=== PATIENT | male | born 1945 | race Caucasian/White ===

== ENCOUNTER 2016-11-17 19:46 | Inpatient (IN) | payer MEDICARE ==
--- NOTE | ~2016-11-17 | OP ---
Record Of Replaced by [facility] [address] [place]. [address] NAME: GENE DOTY : 46 STATUS : ADM IN PAT#: [id number] AGE: 70 ADM/REG DATE : 11/17/16 MR#: [id number] REPORT SERV DATE: 11/21/16 DICTATED BY: BUCK MENARD DATE: 11/20/16 REPORT STATUS : Draft TRANSCRIBED BY: MODL DATE: 11/20/16 DATE OF PROCEDURE: 11/20/2016 CARDIAC CATHETERIZATION REPORT INDICATION FOR THIS PROCEDURE: Anterior wall myocardial infarction with persistent congestive heart failure and possible VSD by echocardiogram. PROCEDURE IN DETAIL: The patient was prepped and draped in the usual sterile fashion. He was under moderate IV sedation prior to arrival. Adequate anesthesia was obtained over the left femoral vessels using lidocaine infiltration. Using the Seldinger technique, a 6- Kazakh sheath was placed in the left femoral artery. A 6 FL4 coronary catheter was advanced in the left coronary ostium. Left coronary artery injections were performed in the DANISH and HIGGINS views. The left coronary catheter was then exchanged for a 6-Kazakh pigtail catheter which was advanced into the left ventricular cavity. Pressures were measured across the aortic valve and a left ventricular angiogram was obtained in the HIGGINS projection. The pigtail catheter was removed over a guidewire and the sheath was left in place. There were no apparent complications. TOTAL CONTRAST USED: 45 mL. TOTAL RADIATION EXPOSURE: 298 mGy. ESTIMATED BLOOD LOSS: No significant blood loss occurred. RESULTS: 1. Pressures: The left ventricular end-diastolic pressure was 20 mmHg and no gradient was present across the aortic valve. 2. Left ventricular angiogram: Left ventricle showed anteroapical akinesis with a global ejection fraction of 30%. Moderate mitral regurgitation was noted. 3. Coronary arteriography: The left main coronary artery was normal. The left anterior descending coronary artery had widely patent stents in its midportion with BILL grade 3 distal flow. Left circumflex coronary artery was free of significant disease. IMPRESSION: 1. Continued patency of stents in LAD with BILL grade 3 distal flow. 2. Severe left ventricular dysfunction with evidence of an anteroapical infarct and moderate mitral regurgitation. PLAN: Continue medical therapy. ADDENDUM: Left ventricular injection showed no angiographic evidence of left to right shunt. Record Of Replaced by [facility] [address] [place]. [address] NAME: GENE DOTY : 46 STATUS : ADM IN PAT#: [id number] AGE: 70 ADM/REG DATE : 11/17/16 MR#: [id number] REPORT SERV DATE: 11/21/16 DICTATED BY: BUCK MENARD DATE: 11/20/16 REPORT STATUS : Draft TRANSCRIBED BY: MODL DATE: 11/20/16 SS/RAHL Buck Menard M.D., DebbieCTishC. / [id number] / [id number] CC: Buck Menard M.D., MonaCTish Guerra D.O.
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
--- NOTE | ~2016-11-17 | OP ---
Record Of Operation [facility] [address] [place]. [address] NAME: GENE DOTY : 46 STATUS : ADM IN PAT#: [id number] AGE: 70 ADM/REG DATE : 11/17/16 MR#: [id number] REPORT SERV DATE: 11/19/16 DICTATED BY: BUCK MENARD DATE: 11/17/16 REPORT STATUS : Draft TRANSCRIBED BY: JASON DATE: 11/17/16 DATE OF PROCEDURE: 11/17/2016 CARDIAC CATHETERIZATION REPORT INDICATION FOR THIS PROCEDURE: Anterior wall myocardial infarction, complicated by cardiac arrest. PROCEDURE: The patient was brought emergently to the cardiac catheterization laboratory by red lead burner. The patient has already been intubated and was on dopamine and amiodarone drip at the time of arrival. The patient was prepped and draped in usual sterile fashion. Moderate IV sedation was administered. Adequate anesthesia was obtained over the right femoral vessels using lidocaine infiltration. Using the Seldinger technique, a 6-Chadian sheath was placed in the right femoral artery. A 6 FL5 coronary catheter was advanced in the left coronary ostium. Left coronary artery injections were performed in multiple views. Left coronary catheter was then exchanged for 6 FR4 coronary catheter which was advanced to the right coronary ostium. Right coronary injections were then performed in the FRANCES and HIGGINS views. Following PCI of the LAD, a 6-Chadian pigtail catheter was advanced in the left ventricular cavity. Pressures were measured across the aortic valve. Left ventricular angiogram was obtained in the HIGGINS projection. The pigtail catheter was removed and the sheath was left in place. RESULTS: 1. Pressures: Left ventricular end-diastolic pressure was 28 mmHg and no gradient was present across the aortic valve. 2. Left ventricular angiogram: Left ventricle showed severe anteroapical hypokinesis with global ejection fraction of around 35%. 3. Coronary arteriograms: The left main coronary artery was normal. Left anterior descending coronary artery was occluded proximal to the stent in the proximal vessel. The left circumflex coronary artery was normal. The right coronary was dominant vessel was also normal. IMPRESSION: 1. Acute occlusion of previously stented proximal LAD. 2. Severe left ventricular dysfunction with evidence of anterior apical infarct. PLAN: Recanalization of LAD. TUAN/JASON Buck Menard M.D., F.A.C.C. / [id number] Record Of [place] [address] [place]. [address] NAME: GENE DOTY : 46 STATUS : ADM IN PAT#: [id number] AGE: 70 ADM/REG DATE : 11/17/16 MR#: [id number] REPORT SERV DATE: 11/19/16 DICTATED BY: BUCK MENARD DATE: 11/17/16 REPORT STATUS : Draft TRANSCRIBED BY: JASON DATE: 11/17/16 CC: Buck Menard M.D., F.A.C.CTish Guerra D.O.
--- NOTE | ~2016-11-17 | OP ---
Record Of Operation [facility] [address] [place]. [address] NAME: GENE DOTY : 47 STATUS : ADM IN PAT#: [id number] AGE: 70 ADM/REG DATE : 11/17/16 MR#: [id number] REPORT SERV DATE: 11/17/16 DICTATED BY: BUCK MENARD DATE: 11/17/16 REPORT STATUS : Draft TRANSCRIBED BY: MODL DATE: 11/17/16 DATE OF PROCEDURE: 11/17/2016 PTCA AND INTRA-AORTIC BALLOON INSERTION REPORT INDICATION FOR THIS PROCEDURE: Anterior wall myocardial infarction, complicated by cardiopulmonary arrest and cardiogenic shock. PROCEDURE IN DETAIL: The patient was already prepped and draped. A 6-Sammarinese sheath was THEN placed in the right femoral artery from preceding cardiac catheterization. A 6 JL5 coronary guiding catheter was advanced in the left coronary ostium. Left coronary artery injections confirmed the presence of 100% occlusion in the proximal LAD. A 0.014 Luge guidewire was passed into the distal LAD through the site of occlusion. The vessel was then dilated with a 2.5/15 Emerge Balloon at up to 15 atmospheres pressure for 15 seconds in duration. Thrombectomy was then performed using a Pronto thrombectomy catheter. However, the thrombectomy catheter could not be passed beyond the mid vessel, and it was decided to proceed with thrombectomy using an AngioJet. Thrombectomy was performed using an AngioJet catheter. Intracoronary Cardene was administered. After re-establishing flow in the mid-to distal LAD, a segmental lesion of 60% to 70% severity was noted. A 2.5/28 Synergy stent was then deployed in the mid distal LAD at up to 15 atmospheres pressure for 15 seconds in duration. Following removal of balloon and guidewire, final left coronary artery injection showed 0% residual stenosis at the site of occlusion in the proximal vessel and the site of stent implantation in the mid to distal vessel. The distal LAD was noted to be a diffusely diseased small caliber vessel. Following PCI, the patient was still requiring dopamine for pressure support. It was decided to place an intra-aortic balloon pump. The 6-Sammarinese sheath was exchanged over a guidewire for an 8-Sammarinese sheath. An intra-aortic balloon pump was advanced to the descending aorta. An intra-aortic counterpulsation was begun at 1 to 2. The balloon pump was sutured into place, and the patient left the cardiac catheterization laboratory with stable vital signs. TOTAL CONTRAST USED: 205 mL. TOTAL RADIATION EXPOSURE: 1720 mGy. ESTIMATED BLOOD LOSS: No significant blood loss occurred. IMPRESSION: 1. Recanalization of occluded proximal LAD using balloon angioplasty and thrombectomy. 2. Stent implantation in the mid LAD. 3. Intracoronary Cardene administration. 4. Placement of intra-aortic balloon pump. TUAN/JASON Record Of [address] [address] NAME: GENE DOTY : 46 STATUS : ADM IN [facility]#: [id number] AGE: 70 ADM/REG DATE : 11/17/16 MR#: [id number] REPORT SERV DATE: 11/17/16 DICTATED BY: BUCK MENARD DATE: 11/17/16 REPORT STATUS : Draft TRANSCRIBED BY: JASON DATE: 11/17/16 Buck Menard M.D., F.A.C.C. / [id number] CC: Buck Menard M.D., F.A.C.CTish Guerra MD
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
[~2016-11-17 19:46] MED LIST: ALTA2.5 PO; ASAB PO; BRILINTA90 MG PO; LIPITOR20 PO; LOP25 PO; PRILOSEC40 MG PO
[2016-11-17] MEDS ORDERED: ASAB PO (20:28)
[2016-11-17] MEDS ORDERED: LIPITOR20 PO (20:28)
[2016-11-17] MEDS ORDERED: DIOV160 PO (20:28)
[2016-11-17] MEDS ORDERED: LOP25 PO (20:29)
[2016-11-17] MEDS ORDERED: PRILOSEC40 MG PO (20:29)
[2016-11-17] MEDS ORDERED: 8 HOUR650 MG PO (20:29)
[2016-11-17] MEDS ORDERED: REFRES1 OPH (20:30)
[2016-11-17] MEDS ORDERED: CLARIT10 PO (20:30)
[2016-11-17 22:35] LABS: BE (BASE EXCESS) -7.7 MEQ/L (0 +/- 2.5); CARBOXYHEMOGLOBIN 0.3 % (0-3); HCO3 (ACTUAL BICARBONATE) 17.7 MEQ/L (23-27); HEMOBLOGIN CONTENT 14.3 G/DL (14-18); INSTRUMENT SERIAL # 11843; METHEMOGLOBIN 0.5 % (0-3); O2 CONTENT 19.9 VOL% (18-24); OPERATOR ID 32193; PCO2 (CO2 TENSION) 36 MMHG (35-45); PO2 (O2 TENSION) 160 MMHG (79-93); SAMPLE Arterial; TIDAL VOLUME 650 ML; pH 7.31 (7.37-7.43)
[2016-11-18 00:20] LABS: CKMB INDEX (NOT ORD) 7.1
[2016-11-18 00:34] LABS: CARBOXYHEMOGLOBIN 0.1 % (0-3); HCO3 (ACTUAL BICARBONATE) 17.2 MEQ/L (23-27); HEMOBLOGIN CONTENT 14.2 G/DL (14-18); INSTRUMENT SERIAL # 11843; METHEMOGLOBIN 0.5 % (0-3); O2 CONTENT 19.2 VOL% (18-24); OPERATOR ID 32193; PCO2 (CO2 TENSION) 31 MMHG (35-45); PO2 (O2 TENSION) 90 MMHG (79-93); SAMPLE Arterial; TIDAL VOLUME 650 ML; pH 7.36 (7.37-7.43)
[2016-11-18 03:27] LABS: BE (BASE EXCESS) -6.6 MEQ/L (0 +/- 2.5); CARBOXYHEMOGLOBIN 0.2 % (0-3); HCO3 (ACTUAL BICARBONATE) 17.9 MEQ/L (23-27); INSTRUMENT SERIAL # 11843; METHEMOGLOBIN 0.4 % (0-3); MODE CMV; O2 CONTENT 19.1 VOL% (18-24); OPERATOR ID 16503; PCO2 (CO2 TENSION) 33 MMHG (35-45); PO2 (O2 TENSION) 99 MMHG (79-93); SAMPLE Arterial; TIDAL VOLUME 650 ML; pH 7.35 (7.37-7.43)
[2016-11-18 03:33] LABS: BASOPHILS 0.1 %; BASOPHILS ABSOLUTE 0.01 10/3/uL (0.0-0.16); EOSINOPHILS 0.1 %; EOSINOPHILS ABSOLUTE 0.01 10/3/uL (0.0-0.53); HEMATOCRIT 38.8 % (40.0-51.0); HEMOGLOBIN 13.2 g/dL (13.6-17.8); IMMATURE GRANULOCYTES 0.3 %; IMMATURE GRANULOCYTES ABSOLUTE 0.05 10/3/uL (0.0-0.11); LYMPHOCYTES 12.2 %; LYMPHOCYTES ABSOLUTE 1.82 10/3/uL (0.67-4.30); MEAN CORPUSCULAR HEMOGLOB 28.8 pg (26.0-34.0); MEAN CORPUSCULAR VOLUME 84.5 fL (80-100); MEAN PLATELET VOLUME 9.4 fL (9.2-13.0); MONOCYTES 8.8 %; MONOCYTES ABSOLUTE 1.31 10/3/uL (0.21-1.20); NEUTROPHILS 78.5 %; NEUTROPHILS ABSOLUTE 11.76 10/3/uL (2.02-8.40); PLATELET COUNT 274 10/3/uL (150-400); RBC DISTRIBUTION WIDTH 13.7 % (12.0-16.0); RED CELL COUNT 4.59 10/6/uL (4.7-6.1)
[2016-11-18 03:34] LABS: MANUAL DIFF NO %
[2016-11-18 03:48] LABS: BUN (BLOOD UREA NITROGEN) 21 MG/DL (6-23); CALCIUM, SERUM 8.3 MG/DL (8.5-10.4); CHLORIDE, SERUM 108 MMOL/L (96-112); CHOL/HDL RATIO(NOT ORDER) 3.3 (0-5); CHOLESTEROL 117 MG/DL (< 200); CO2 (CARBON DIOXIDE) 20 MMOL/L (24-34); CREATININE 1.29 MG/DL (0.70-1.30); GFR AFRICAN AMERICAN 65 ML/MIN (>=60); GFR NON AFRICAN AMERICAN 56 ML/MIN (>=60); GLUCOSE, SERUM 208 MG/DL (60-99); HDL CHOLESTEROL 35 MG/DL (> 39); LDL CHOLESTEROL 41 MG/DL (< 130); NON-HDL CHOLESTEROL 82 MG/DL (< 160); PHOSPHORUS, SERUM 2.3 MG/DL (2.5-4.5); POTASSIUM, SERUM 3.6 MMOL/L (3.5-5.3); SODIUM, SERUM 141 MMOL/L (135-148); TRIGLYCERIDE 208 MG/DL (< 150)
[2016-11-18 11:03] LABS: BE (BASE EXCESS) -4.5 MEQ/L (0 +/- 2.5); CARBOXYHEMOGLOBIN 0.3 % (0-3); HCO3 (ACTUAL BICARBONATE) 19.2 MEQ/L (23-27); HEMOBLOGIN CONTENT 13.7 G/DL (14-18); INSTRUMENT SERIAL # 11843; METHEMOGLOBIN 0.4 % (0-3); MODE CMV; O2 CONTENT 18.2 VOL% (18-24); PCO2 (CO2 TENSION) 32 MMHG (35-45); PO2 (O2 TENSION) 76 MMHG (79-93); SAMPLE Arterial; TIDAL VOLUME 650 ML
[2016-11-18 12:05] LABS: INTERNATIONAL NORMAL RATI 1.2 UNITS (-); PARTIAL THROMBO TIME 34.4 SEC (22.5-37.2); PROTIME (NOT ORD) 14.6 SEC (12.0-14.5)
[2016-11-18 12:19] LABS: BUN (BLOOD UREA NITROGEN) 18 MG/DL (6-23); CALCIUM, SERUM 8.3 MG/DL (8.5-10.4); CHLORIDE, SERUM 106 MMOL/L (96-112); CK-MB 287.6 NG/ML; CO2 (CARBON DIOXIDE) 20 MMOL/L (24-34); CPK 4980 U/L (0-200); CREATININE 1.17 MG/DL (0.70-1.30); GFR AFRICAN AMERICAN 73 ML/MIN (>=60); GFR NON AFRICAN AMERICAN 63 ML/MIN (>=60); GLUCOSE, SERUM 183 MG/DL (60-99); SODIUM, SERUM 138 MMOL/L (135-148)
[2016-11-18 12:24] LABS: CKMB INDEX (NOT ORD) 5.8
[2016-11-18 16:57] LABS: BUN (BLOOD UREA NITROGEN) 17 MG/DL (6-23); CALCIUM, SERUM 8.4 MG/DL (8.5-10.4); CHLORIDE, SERUM 109 MMOL/L (96-112); CO2 (CARBON DIOXIDE) 21 MMOL/L (24-34); GFR AFRICAN AMERICAN 71 ML/MIN (>=60); GFR NON AFRICAN AMERICAN 61 ML/MIN (>=60); GLUCOSE, SERUM 181 MG/DL (60-99); POTASSIUM, SERUM 3.8 MMOL/L (3.5-5.3); SODIUM, SERUM 141 MMOL/L (135-148)
[2016-11-18 18:13] LABS: CK-MB 157.2 NG/ML
[2016-11-18 18:15] LABS: CKMB INDEX (NOT ORD) 4.2
[2016-11-19 01:27] LABS: BASOPHILS 0.1 %; BASOPHILS ABSOLUTE 0.01 10/3/uL (0.0-0.16); EOSINOPHILS 0.1 %; EOSINOPHILS ABSOLUTE 0.01 10/3/uL (0.0-0.53); HEMOGLOBIN 12.4 g/dL (13.6-17.8); IMMATURE GRANULOCYTES 0.3 %; IMMATURE GRANULOCYTES ABSOLUTE 0.03 10/3/uL (0.0-0.11); LYMPHOCYTES 14.9 %; LYMPHOCYTES ABSOLUTE 1.76 10/3/uL (0.67-4.30); MEAN CORPUS HGB CONC 34.4 g/dL (32.0-36.0); MEAN CORPUSCULAR HEMOGLOB 28.8 pg (26.0-34.0); MEAN CORPUSCULAR VOLUME 83.7 fL (80-100); MONOCYTES 7.7 %; MONOCYTES ABSOLUTE 0.91 10/3/uL (0.21-1.20); NEUTROPHILS 76.9 %; NEUTROPHILS ABSOLUTE 9.07 10/3/uL (2.02-8.40); PLATELET COUNT 237 10/3/uL (150-400); RBC DISTRIBUTION WIDTH 13.9 % (12.0-16.0); WHITE BLOOD CELLS 11.8 10/3/uL (4.5-10.5)
[2016-11-19 01:28] LABS: MANUAL DIFF NO %
[2016-11-19 01:54] LABS: ALBUMIN 3.4 G/DL (3.5-5.0); ALKALINE PHOSPHATASE 80 U/L (45-117); BUN (BLOOD UREA NITROGEN) 16 MG/DL (6-23); CHLORIDE, SERUM 107 MMOL/L (96-112); CO2 (CARBON DIOXIDE) 22 MMOL/L (24-34); CPK 2619 U/L (0-200); DIRECT BILIRUBIN 0.2 MG/DL (0.0-0.4); GFR AFRICAN AMERICAN 79 ML/MIN (>=60); GFR NON AFRICAN AMERICAN 68 ML/MIN (>=60); GLUCOSE, SERUM 163 MG/DL (60-99); INDIRECT BILIRUBIN(NOT ORDER) 0.3 MG/DL (0.1-0.9); POTASSIUM, SERUM 3.6 MMOL/L (3.5-5.3); SGOT(AST) 300 U/L (5-40); SGPT(ALT) 86 U/L (5-65); SODIUM, SERUM 140 MMOL/L (135-148); TOTAL BILIRUBIN 0.5 MG/DL (0-1.2); TOTAL PROTEIN 6.8 G/DL (6.0-8.5)
[2016-11-19 01:56] LABS: PHOSPHORUS, SERUM 3.1 MG/DL (2.5-4.5)
[2016-11-19 04:00] LABS: BE (BASE EXCESS) -2.9 MEQ/L (0 +/- 2.5); HCO3 (ACTUAL BICARBONATE) 19.8 MEQ/L (23-27); INSTRUMENT SERIAL # 11843; PCO2 (CO2 TENSION) 29 MMHG (35-45); PO2 (O2 TENSION) 65 MMHG (79-93); pH 7.45 (7.37-7.43)
[2016-11-19 04:01] LABS: CARBOXYHEMOGLOBIN 0.3 % (0-3); METHEMOGLOBIN 0.3 % (0-3); MODE CMV; O2 CONTENT 16.9 VOL% (18-24); OPERATOR ID 16469; SAMPLE Arterial; TIDAL VOLUME 650 ML
[2016-11-19 10:37] LABS: POTASSIUM, SERUM 3.6 MMOL/L (3.5-5.3)
[2016-11-19 12:15] LABS: BE (BASE EXCESS) -3.7 MEQ/L (0 +/- 2.5); CARBOXYHEMOGLOBIN 0.3 % (0-3); HCO3 (ACTUAL BICARBONATE) 18.6 MEQ/L (23-27); HEMOBLOGIN CONTENT 12.8 G/DL (14-18); INSTRUMENT SERIAL # 11843; METHEMOGLOBIN 0.4 % (0-3); MODE CMV; PCO2 (CO2 TENSION) 27 MMHG (35-45); PO2 (O2 TENSION) 75 MMHG (79-93); SAMPLE Arterial; TIDAL VOLUME 550 ML; pH 7.46 (7.37-7.43)
[2016-11-19 14:00] LABS: CK-MB 36.9 NG/ML; CKMB INDEX (NOT ORD) 2.2
[2016-11-19 14:16] LABS: TROPONIN I 50.3 NG/ML (<0.05)
[2016-11-19 21:27] LABS: POTASSIUM, SERUM 3.6 MMOL/L (3.5-5.3)
[2016-11-20 03:47] LABS: BASOPHILS 0.1 %; BASOPHILS ABSOLUTE 0.01 10/3/uL (0.0-0.16); EOSINOPHILS 0.4 %; EOSINOPHILS ABSOLUTE 0.04 10/3/uL (0.0-0.53); HEMATOCRIT 33.4 % (40.0-51.0); HEMOGLOBIN 11.5 g/dL (13.6-17.8); IMMATURE GRANULOCYTES 0.4 %; IMMATURE GRANULOCYTES ABSOLUTE 0.04 10/3/uL (0.0-0.11); LYMPHOCYTES 15.2 %; LYMPHOCYTES ABSOLUTE 1.68 10/3/uL (0.67-4.30); MANUAL DIFF NO %; MEAN CORPUS HGB CONC 34.4 g/dL (32.0-36.0); MEAN CORPUSCULAR HEMOGLOB 29.3 pg (26.0-34.0); MEAN PLATELET VOLUME 9.4 fL (9.2-13.0); MONOCYTES ABSOLUTE 0.88 10/3/uL (0.21-1.20); NEUTROPHILS 75.9 %; NEUTROPHILS ABSOLUTE 8.37 10/3/uL (2.02-8.40); PLATELET COUNT 214 10/3/uL (150-400); RBC DISTRIBUTION WIDTH 14.4 % (12.0-16.0); RED CELL COUNT 3.93 10/6/uL (4.7-6.1)
[2016-11-20 04:01] LABS: A/G RATIO 0.9 (0.7-1.9); ALKALINE PHOSPHATASE 78 U/L (45-117); BUN (BLOOD UREA NITROGEN) 17 MG/DL (6-23); CALCIUM, SERUM 7.9 MG/DL (8.5-10.4); CHLORIDE, SERUM 104 MMOL/L (96-112); CO2 (CARBON DIOXIDE) 19 MMOL/L (24-34); CREATININE 1.13 MG/DL (0.70-1.30); GFR AFRICAN AMERICAN 76 ML/MIN (>=60); GFR NON AFRICAN AMERICAN 66 ML/MIN (>=60); GLOBULIN 3.4 G/DL (2.5-4.1); GLUCOSE, SERUM 165 MG/DL (60-99); SGOT(AST) 129 U/L (5-40); SGPT(ALT) 60 U/L (5-65); SODIUM, SERUM 135 MMOL/L (135-148); TOTAL PROTEIN 6.4 G/DL (6.0-8.5)
[2016-11-20 04:42] LABS: TOTAL BILIRUBIN 1.2 MG/DL (0-1.2)
[2016-11-20 09:45] LABS: ASCORBIC ACID (UR NOT ORDER) NEG (NEG); BILIRUBIN, URINE NEGATIVE (NEG); KETONE, URINE NEGATIVE (NEG); LEUKOCYTE ESTERASE(NOT OR NEG (NEG); WBC (NOT ORDERED) (RFLEX) 1 (0-5)
[2016-11-20 15:01] LABS: BUN (BLOOD UREA NITROGEN) 17 MG/DL (6-23); CALCIUM, SERUM 7.8 MG/DL (8.5-10.4); CHLORIDE, SERUM 103 MMOL/L (96-112); CO2 (CARBON DIOXIDE) 19 MMOL/L (24-34); GFR AFRICAN AMERICAN 71 ML/MIN (>=60); GFR NON AFRICAN AMERICAN 61 ML/MIN (>=60); GLUCOSE, SERUM 159 MG/DL (60-99); PHOSPHORUS, SERUM 3.4 MG/DL (2.5-4.5); POTASSIUM, SERUM 4.1 MMOL/L (3.5-5.3); SODIUM, SERUM 134 MMOL/L (135-148)
[2016-11-21 04:02] LABS: BASOPHILS 0.1 %; BASOPHILS ABSOLUTE 0.01 10/3/uL (0.0-0.16); EOSINOPHILS 1.4 %; EOSINOPHILS ABSOLUTE 0.13 10/3/uL (0.0-0.53); HEMATOCRIT 35.6 % (40.0-51.0); IMMATURE GRANULOCYTES 0.3 %; IMMATURE GRANULOCYTES ABSOLUTE 0.03 10/3/uL (0.0-0.11); LYMPHOCYTES 15.4 %; LYMPHOCYTES ABSOLUTE 1.43 10/3/uL (0.67-4.30); MEAN CORPUS HGB CONC 33.7 g/dL (32.0-36.0); MEAN CORPUSCULAR HEMOGLOB 29.1 pg (26.0-34.0); MEAN CORPUSCULAR VOLUME 86.2 fL (80-100); MEAN PLATELET VOLUME 9.9 fL (9.2-13.0); MONOCYTES 7.2 %; MONOCYTES ABSOLUTE 0.67 10/3/uL (0.21-1.20); NEUTROPHILS 75.6 %; NEUTROPHILS ABSOLUTE 7.01 10/3/uL (2.02-8.40); PLATELET COUNT 202 10/3/uL (150-400); RBC DISTRIBUTION WIDTH 14.1 % (12.0-16.0); RED CELL COUNT 4.13 10/6/uL (4.7-6.1); WHITE BLOOD CELLS 9.3 10/3/uL (4.5-10.5)
[2016-11-21 04:11] LABS: MANUAL DIFF NO %
[2016-11-21 04:15] LABS: A/G RATIO 0.8 (0.7-1.9); ALBUMIN 3.2 G/DL (3.5-5.0); ALKALINE PHOSPHATASE 83 U/L (45-117); BUN (BLOOD UREA NITROGEN) 19 MG/DL (6-23); CHLORIDE, SERUM 102 MMOL/L (96-112); CHOL/HDL RATIO(NOT ORDER) 3.5 (0-5); CHOLESTEROL 131 MG/DL (< 200); CO2 (CARBON DIOXIDE) 22 MMOL/L (24-34); CREATININE 1.17 MG/DL (0.70-1.30); GFR AFRICAN AMERICAN 73 ML/MIN (>=60); GFR NON AFRICAN AMERICAN 63 ML/MIN (>=60); GLOBULIN 3.8 G/DL (2.5-4.1); GLUCOSE, SERUM 148 MG/DL (60-99); HDL CHOLESTEROL 37 MG/DL (> 39); LDL CHOLESTEROL 56 MG/DL (< 130); NON-HDL CHOLESTEROL 94 MG/DL (< 160); PHOSPHORUS, SERUM 2.9 MG/DL (2.5-4.5); POTASSIUM, SERUM 3.9 MMOL/L (3.5-5.3); SGOT(AST) 151 U/L (5-40); SGPT(ALT) 60 U/L (5-65); SODIUM, SERUM 137 MMOL/L (135-148); TOTAL BILIRUBIN 1.6 MG/DL (0-1.2); TRIGLYCERIDE 193 MG/DL (< 150)
[2016-11-21 18:20] LABS: POTASSIUM, SERUM 3.6 MMOL/L (3.5-5.3)
[2016-11-22 03:51] LABS: BASOPHILS 0 %; EOSINOPHILS 0 %; HEMATOCRIT 32.3 % (40.0-51.0); HEMOGLOBIN 10.9 g/dL (13.6-17.8); IMMATURE GRANULOCYTES 0.2 %; IMMATURE GRANULOCYTES ABSOLUTE 0.02 10/3/uL (0.0-0.11); LYMPHOCYTES ABSOLUTE 0.64 10/3/uL (0.67-4.30); MEAN CORPUS HGB CONC 33.7 g/dL (32.0-36.0); MEAN CORPUSCULAR HEMOGLOB 28.2 pg (26.0-34.0); MEAN PLATELET VOLUME 9.5 fL (9.2-13.0); MONOCYTES 2.4 %; MONOCYTES ABSOLUTE 0.22 10/3/uL (0.21-1.20); NEUTROPHILS 90.4 %; NEUTROPHILS ABSOLUTE 8.21 10/3/uL (2.02-8.40); PLATELET COUNT 242 10/3/uL (150-400); RBC DISTRIBUTION WIDTH 13.9 % (12.0-16.0); RED CELL COUNT 3.87 10/6/uL (4.7-6.1); WHITE BLOOD CELLS 9.1 10/3/uL (4.5-10.5)
[2016-11-22 03:54] LABS: MANUAL DIFF NO %; MEAN CORPUSCULAR VOLUME 83.5 fL (80-100)
[2016-11-22 04:05] LABS: ALBUMIN 2.9 G/DL (3.5-5.0); BUN (BLOOD UREA NITROGEN) 20 MG/DL (6-23); CALCIUM, SERUM 8.6 MG/DL (8.5-10.4); CHLORIDE, SERUM 104 MMOL/L (96-112); CO2 (CARBON DIOXIDE) 20 MMOL/L (24-34); CREATININE 1.24 MG/DL (0.70-1.30); GFR AFRICAN AMERICAN 68 ML/MIN (>=60); GFR NON AFRICAN AMERICAN 59 ML/MIN (>=60); PHOSPHORUS, SERUM 2.4 MG/DL (2.5-4.5); POTASSIUM, SERUM 3.8 MMOL/L (3.5-5.3); SODIUM, SERUM 137 MMOL/L (135-148)
[2016-11-22 04:06] LABS: GLUCOSE, SERUM 202 MG/DL (60-99)
[2016-11-22 17:48] LABS: BUN (BLOOD UREA NITROGEN) 23 MG/DL (6-23); CALCIUM, SERUM 8.5 MG/DL (8.5-10.4); CHLORIDE, SERUM 106 MMOL/L (96-112); CO2 (CARBON DIOXIDE) 18 MMOL/L (24-34); CREATININE 1.12 MG/DL (0.70-1.30); GFR AFRICAN AMERICAN 77 ML/MIN (>=60); GFR NON AFRICAN AMERICAN 67 ML/MIN (>=60); GLUCOSE, SERUM 217 MG/DL (60-99); POTASSIUM, SERUM 3.6 MMOL/L (3.5-5.3); SODIUM, SERUM 136 MMOL/L (135-148)
[2016-11-23 03:59] LABS: BASOPHILS 0.1 %; BASOPHILS ABSOLUTE 0.01 10/3/uL (0.0-0.16); EOSINOPHILS 0 %; HEMATOCRIT 32.2 % (40.0-51.0); HEMOGLOBIN 10.9 g/dL (13.6-17.8); IMMATURE GRANULOCYTES 0.5 %; IMMATURE GRANULOCYTES ABSOLUTE 0.07 10/3/uL (0.0-0.11); LYMPHOCYTES 7.5 %; LYMPHOCYTES ABSOLUTE 1.14 10/3/uL (0.67-4.30); MEAN CORPUS HGB CONC 33.9 g/dL (32.0-36.0); MEAN CORPUSCULAR HEMOGLOB 28.5 pg (26.0-34.0); MEAN CORPUSCULAR VOLUME 84.3 fL (80-100); MEAN PLATELET VOLUME 9.5 fL (9.2-13.0); MONOCYTES ABSOLUTE 0.91 10/3/uL (0.21-1.20); NEUTROPHILS 85.9 %; NEUTROPHILS ABSOLUTE 12.97 10/3/uL (2.02-8.40); PLATELET COUNT 255 10/3/uL (150-400); RBC DISTRIBUTION WIDTH 13.9 % (12.0-16.0); RED CELL COUNT 3.82 10/6/uL (4.7-6.1)
[2016-11-23 04:11] LABS: MANUAL DIFF NO %; WHITE BLOOD CELLS 15.1 10/3/uL (4.5-10.5)
[2016-11-23 04:15] LABS: CALCIUM, SERUM 8.6 MG/DL (8.5-10.4); CHLORIDE, SERUM 105 MMOL/L (96-112); CO2 (CARBON DIOXIDE) 20 MMOL/L (24-34); CREATININE 1.26 MG/DL (0.70-1.30); GFR AFRICAN AMERICAN 67 ML/MIN (>=60); GFR NON AFRICAN AMERICAN 58 ML/MIN (>=60); GLUCOSE, SERUM 182 MG/DL (60-99); POTASSIUM, SERUM 3.9 MMOL/L (3.5-5.3); SODIUM, SERUM 136 MMOL/L (135-148)
[2016-11-23 04:25] LABS: BUN (BLOOD UREA NITROGEN) 28 MG/DL (6-23)
[2016-11-27 05:08] LABS: HEMATOCRIT 33.4 % (40.0-51.0); MANUAL DIFF YES %; MEAN CORPUS HGB CONC 32.9 g/dL (32.0-36.0); MEAN CORPUSCULAR HEMOGLOB 28.5 pg (26.0-34.0); MEAN CORPUSCULAR VOLUME 86.5 fL (80-100); MEAN PLATELET VOLUME 8.9 fL (9.2-13.0); PLATELET COUNT 353 10/3/uL (150-400); RBC DISTRIBUTION WIDTH 14.1 % (12.0-16.0); RED CELL COUNT 3.86 10/6/uL (4.7-6.1); WHITE BLOOD CELLS 12.1 10/3/uL (4.5-10.5)
[2016-11-27 05:10] LABS: INTERNATIONAL NORMAL RATI 1.1 UNITS (-); PROTIME (NOT ORD) 14.1 SEC (12.0-14.5)
[2016-11-27 05:32] LABS: BUN (BLOOD UREA NITROGEN) 18 MG/DL (6-23); CALCIUM, SERUM 8.6 MG/DL (8.5-10.4); CHLORIDE, SERUM 105 MMOL/L (96-112); CO2 (CARBON DIOXIDE) 18 MMOL/L (24-34); GFR AFRICAN AMERICAN 89 ML/MIN (>=60); GFR NON AFRICAN AMERICAN 76 ML/MIN (>=60); GLUCOSE, SERUM 109 MG/DL (60-99); POTASSIUM, SERUM 4.3 MMOL/L (3.5-5.3); SODIUM, SERUM 137 MMOL/L (135-148)
[2016-11-27 05:40] LABS: BAND NEUTROPHILS 14 %; IMMATURE GRANS ABSOLUTE (CALC) 0.48 10/3/uL (0.0-0.11); LYMPHOCYTES 7 %; LYMPHOCYTES ABSOLUTE (CALC) 0.85 10/3/uL (0.67-4.30); METAMYELOCYTES 4 %; MONOCYTES 5 %; MONOCYTES ABSOLUTE (CALC) 0.61 10/3/uL (0.21-1.20); NEUTROPHILS ABSOLUTE (CALC) 10.16 10/3/uL (2.02-8.40); PLATELET ESTIMATE ADQ (ADEQUATE); RBC MORPHOLOGY NORM (NORMAL); SEGMENTED NEUTROPHIL (0) 70 %; TOTAL NUCLEATED CELLS 100
[2016-11-28] MEDS ORDERED: PCET PO (11:58)
== END 2016-11-28 14:53 | disposition home or self-care (01) | DRG 222 ==
LOC: CCU 19:46 → SSU2 19:52 → CVICU 22:08 → 6NO 11-23 10:57
PROVIDERS: Internal Medicine Cardiovascular Disease; Internal Medicine Critical Care Medicine; Internal Medicine Interventional Cardiology; Internal Medicine Pulmonary Disease
PROC: 4A023N7 Measurement of Cardiac Sampling and Pressure, Left Heart, Percutaneous Approach (ICD-10-PCS; principal; 2016-11-17)
PROC: 0JH608Z Insertion of Defibrillator Generator into Chest Subcutaneous Tissue and Fascia, Open Approach (ICD-10-PCS; 2016-11-17)
PROC: 5A02110 Assistance with Cardiac Output using Balloon Pump, Intermittent (ICD-10-PCS; 2016-11-17)
PROC: B2111ZZ Fluoroscopy of Multiple Coronary Arteries using Low Osmolar Contrast (ICD-10-PCS; 2016-11-17)
PROC: B2151ZZ Fluoroscopy of Left Heart using Low Osmolar Contrast (ICD-10-PCS; 2016-11-17)
PROC: 02H63KZ Insertion of Defibrillator Lead into Right Atrium, Percutaneous Approach (ICD-10-PCS; 2016-11-17)
PROC: 02C03ZZ Extirpation of Matter from Coronary Artery, One Artery, Percutaneous Approach (ICD-10-PCS; 2016-11-17)
PROC: 0BH18EZ Insertion of Endotracheal Airway into Trachea, Via Natural or Artificial Opening Endoscopic (ICD-10-PCS; 2016-11-17)
PROC: 5A1945Z Respiratory Ventilation, 24-96 Consecutive Hours (ICD-10-PCS; 2016-11-17)
PROC: 02HV33Z Insertion of Infusion Device into Superior Vena Cava, Percutaneous Approach (ICD-10-PCS; 2016-11-18)
PROC: 4A02X4A Measurement of Cardiac Electrical Activity, Guidance, External Approach (ICD-10-PCS; 2016-11-18)
PROC: 02583ZZ Destruction of Conduction Mechanism, Percutaneous Approach (ICD-10-PCS; 2016-11-18)
PROC: 02HK3KZ Insertion of Defibrillator Lead into Right Ventricle, Percutaneous Approach (ICD-10-PCS; 2016-11-27)
PROC: 027034Z Dilation of Coronary Artery, One Artery with Drug-eluting Intraluminal Device, Percutaneous Approach (ICD-10-PCS; 2016-11-27)
PROC: 4A023FZ Measurement of Cardiac Rhythm, Percutaneous Approach (ICD-10-PCS; 2016-11-27)
PROC: 4A0234Z Measurement of Cardiac Electrical Activity, Percutaneous Approach (ICD-10-PCS; 2016-11-27)
PROC: 02K83ZZ Map Conduction Mechanism, Percutaneous Approach (ICD-10-PCS; 2016-11-27)
PROC: 5A2204Z Restoration of Cardiac Rhythm, Single (ICD-10-PCS; 2016-11-27)
DX: I21.09 ST elevation (STEMI) myocardial infarction involving other coronary artery of anterior wall (principal); R57.0 Cardiogenic shock; J96.21 Acute and chronic respiratory failure with hypoxia; I50.21 Acute systolic (congestive) heart failure; J96.22 Acute and chronic respiratory failure with hypercapnia; I47.2 Ventricular tachycardia; I47.1 Supraventricular tachycardia; I48.92 Unspecified atrial flutter; T82.855A Stenosis of coronary artery stent, initial encounter; I25.10 Atherosclerotic heart disease of native coronary artery without angina pectoris; I34.0 Nonrheumatic mitral (valve) insufficiency; K21.9 Gastro-esophageal reflux disease without esophagitis; M19.90 Unspecified osteoarthritis, unspecified site; I49.1 Atrial premature depolarization; Z96.651 Presence of right artificial knee joint; Z82.49 Family history of ischemic heart disease and other diseases of the circulatory system; Z79.82 Long term (current) use of aspirin; Z79.899 Other long term (current) drug therapy; Z86.12 Personal history of poliomyelitis; Z95.5 Presence of coronary angioplasty implant and graft; Z88.5 Allergy status to narcotic agent
CPT/HCPCS: 31720; 33249; 33967; 36569; 71010; 71020; 80048; 80053; 80061; 80069; 80076; 81001; 82330; 82550; 82553; 82565; 82805; 82962; 83735; 83880; 84100; 84132; 84484; 85025; 85347; 85610; 85730; 87070; 87205; 87641; 92950; 92973; 93005; 93458; 93613; 93621; 93641; 93653; 94002; 94003; 94640; 94660; 94668; 94770; 96365; 96366; 96368; 96375; 99291; A9270-GY; C1721; C1725; C1732; C1733; C1751; C1757; C1769; C1781; C1874; C1887; C1892; C1893; C1894; C1895; C1898; C8929; C9113; C9606; J0282; J0330; J0583; J0690; J2250; J2370; J2405; J2543; J3010; J3370; P9047; Q9957; Q9967